=== PATIENT | male | born 1950 | race Caucasian/White ===

== ENCOUNTER 2021-03-30 08:32 | Day surgery (SDC) | payer MEDICARE ==
[~2021-03-30] VITALS: Ht 172.7 cm; Wt 61.0 kg
[~2021-03-30 08:32] MED LIST: HYDR-4353 PO; INDLA80C PO
[2021-03-30 09:05] VITALS: BP 125/81
[2021-03-30] MEDS ORDERED: DOXE50CA4 PO (09:16)
[2021-03-30] MEDS ORDERED: ASPI-611 PO (09:16)
[2021-03-30] MEDS ORDERED: INUL2TAB5 PO (09:16)
[2021-03-30] MEDS ORDERED: LOPE-190 PO (09:16)
[2021-03-30] MEDS ORDERED: OXYC-145 PO (09:16)
[2021-03-30 10:55] VITALS: BP 125/81
== END 2021-03-30 10:55 | disposition home or self-care (01) ==
LOC: SSTAY O 08:32
PROVIDERS: ATTEND Preventive Medicine Aerospace Medicine
DX: R22.31 Localized swelling, mass and lump, right upper limb (principal); D49.2 Neoplasm of unspecified behavior of bone, soft tissue, and skin
CPT/HCPCS: 20206; 76942

== ENCOUNTER 2021-03-31 22:35 | Emergency (ER) | payer MEDICARE ==
[~2021-03-31] VITALS: Ht 172.7 cm; Wt 61.1 kg
[~2021-03-31 22:35] MED LIST changes: +ASPI-611 PO; +DOXE50CA4 PO; +INUL2TAB5 PO; +LOPE-190 PO; +OXYC-145 PO
[2021-03-31] MEDS ORDERED: iohexol 300mg/ml 100ml inj. ONE (23:12)
[2021-03-31 23:28] LABS: BASOPHILS # (AUTO) 0.1 X10'3 (0-0.2); BASOPHILS % (AUTO) 0.8 % (0-1); EOSINOPHILS # (AUTO) 0.3 X10'3 (0-0.9); EOSINOPHILS % (AUTO) 4.2 % (0-6); HEMATOCRIT 46.6 % (42.0-52.0); HEMOGLOBIN 15.8 g/dl (14.0-17.9); LYMPHOCYTES # (AUTO) 1.1 X10'3 (1.1-4.8); LYMPHOCYTES % (AUTO) 12.8 % (21-51); MEAN CORPUSCULAR HEMOGLOBIN 30.6 PG (27.0-31.0); MEAN CORPUSCULAR HGB CONC 33.8 g/dL (33.0-36.5); MEAN CORPUSCULAR VOLUME 90.6 FL (78-98); MEAN PLATELET VOLUME 9.5 FL (7.4-10.4); MONOCYTES % (AUTO) 12.5 % (2-12); NEUTROPHILS # (AUTO) 5.7 X10'3 (1.8-7.7); NEUTROPHILS % (AUTO) 69.7 % (42-75); PLATELET COUNT 174 X10'3 (140-440); RED BLOOD COUNT 5.15 X10'6 (4.70-6.10); RED CELL DISTRIBUTION WIDTH 13.3 % (11.5-14.5); WHITE BLOOD COUNT 8.3 X10'3 (4.5-11.0)
[2021-03-31] MEDS ORDERED: morphine 4 MG/ML inj SYRINge IV ONE (23:30)
[2021-03-31] MEDS ORDERED: metoclopramide 5 mg/ml inj IV ONE (23:30)
--- NOTE | 2021-03-31 23:45 | NUR ---
Len RN Note: IV started, pain meds requested and given
[2021-04-01 00:04] LABS: APTT 31 SECONDS (22-32)
[2021-04-01 00:12] LABS: ALANINE AMINOTRANSFERASE 19 U/L (12-78); ALBUMIN 3.8 G/DL (3.4-5.0); ALBUMIN/GLOBULIN RATIO 1.1 (1.1-1.5); ALKALINE PHOSPHATASE 76 IU/L (46-116); ANION GAP 8 (8-16); ASPARTATE AMINO TRANSFERASE 14 U/L (10-37); BILIRUBIN,TOTAL 0.9 MG/DL (0.1-1.0); BLOOD UREA NITROGEN 15 MG/DL (7-18); BUN/CREATININE RATIO 19.7 (5.4-32.0); CALCIUM 9.4 MG/DL (8.5-10.1); CHLORIDE 104 MMOL/L (99-107); CREATININE 0.76 MG/DL (0.60-1.10); GLUCOSE 109 MG/DL (70-104); POTASSIUM 4.5 MMOL/L (3.5-5.1); SODIUM 141 MMOL/L (135-145); TOTAL CARBON DIOXIDE 28.9 MMOL/L (24-32); TOTAL PROTEIN 7.2 G/DL (6.4-8.2); eGFR > 90 ML/MIN
[2021-04-01 00:13] LABS: BILIRUBIN,DIRECT 0.2 MG/DL (0-0.3); LIPASE 61 U/L (73-393)
[2021-04-01 00:14] LABS: CLARITY,URINE CLEAR (Clear); COLOR,URINE YELLOW (Yellow); GLUCOSE, URINE NEGATIVE (Neg); KETONES,URINE NEGATIVE (Neg); LEUKOCYTE ESTERASE ,URINE NEGATIVE (Neg); NITRITES, URINE NEGATIVE (Neg); OCCULT BLOOD,URINE NEGATIVE (Neg); PROTEIN,URINE TRACE mg/dl (Neg)
[2021-04-01 00:22] LABS: UA COLLECTION TYPE CLN CATCH MIDSTREAM
[2021-04-01 00:23] LABS: BACTERIA,URINE NONE SEEN /HPF (Neg); RBC,URINE 0-2 /HPF (0-2); SQUAMOUS EPITHELIAL CELL,UR FEW /LPF (FEW); WBC,URINE NONE SEEN /HPF (0-4)
[2021-04-01] MEDS ORDERED: morphine 4 MG/ML inj SYRINge IV ONE ×3 (06:35→13:40)
[2021-04-01 17:57] VITALS: BP 149/93
[2021-04-01] MEDS: morphine 4 MG/ML inj SYRINge IV PRN ×2 (18:03→21:03)
== END 2021-04-01 22:08 | disposition short-term general hospital (02) ==
LOC: ER 22:36
DX: R22.1 Localized swelling, mass and lump, neck (principal); Z20.822 Contact with and (suspected) exposure to COVID-19; M54.2 Cervicalgia; M48.00 Spinal stenosis, site unspecified; G43.909 Migraine, unspecified, not intractable, without status migrainosus; Z98.890 Other specified postprocedural states; Z88.8 Allergy status to other drugs, medicaments and biological substances; Z79.82 Long term (current) use of aspirin; Z79.4 Long term (current) use of insulin; Z79.899 Other long term (current) drug therapy
CPT/HCPCS: 36415; 70470; 70492; 71045; 80048; 80076; 81001; 83605; 83690; 85025; 85610; 85730; 87635; 93005; 96374; 96375; 96376; 99291; C9803; J2270; J2765; Q9967